=== PATIENT | female | born 1985 | race Caucasian/White ===

== ENCOUNTER 2018-11-12 18:03 | Inpatient (IN) | payer MEDICAID, OTHER ==
[~2018-11-12] VITALS: Ht 162.6 cm; Wt 157.9 kg
[~2018-11-12 18:03] MED LIST: ACET325T33 PO; CEPH-443 PO; LACT1CAP28 PO; NO MEDICATIONS; PROC10TA10 PO
[2018-11-12] MEDS ORDERED: CEFEPIME 2GM/50 ML (PMX) 50 ML IVPB STA (18:10)
[2018-11-12] MEDS ORDERED: ACETAMINOPHEN 325 MG TAB PO STA (18:14)
[2018-11-12] MEDS ORDERED: SODIUM CHLORIDE 0.9% 1L BAG IV* STA (18:14)
[2018-11-12] MEDS ORDERED: VANCOMYCIN 1 GM (PMX) 250 ML IVPB ONE (18:30)
[2018-11-12] MEDS ORDERED: KETOROLAC 30 MG INJ IV STA (19:13)
--- NOTE | 2018-11-12 19:27 | ERD ---
ER Documentation Chief Complaint Chief Complaint Pt reports bit by a bug, feeling nauseated HPI 33-year-old female presenting with left lower extremity pain and redness with associated fever. She complains of 8 out of 10 burning pain in her left lower extremity, with no alleviating factors. Exacerbated by touch. Her symptoms sta rted yesterday and got worse today. Denies any chest pain, shortness breath, cough, other recent illness, abdominal pain. She complains of a mild frontal headache with some nausea. No vision disturbance focal weakness or numbness. ROS All systems reviewed and are negative except as per history of present illness. Medications Home Meds Active Scripts Cephalexin* (Keflex*) 500 Mg Capsule, 500 MG PO QID for 7 Days, CAP Prov:NAYLA PRIETO MD 11/12/18 Reported Medications [No Medications] No Conflict Check 10/29/11 Allergies Allergies: Coded Allergies: No Known Allergies (Verified Allergy, Unknown, 11/12/18) PMhx/Soc History of Surgery: Yes (Cholecystectomy 2008) Anesthesia Reaction: No Hx Neurological Disorder: No Hx Respiratory Disorders: No Hx Cardiac Disorders: No Hx Psychiatric Problems: No Hx Miscellaneous Medical Probl: No Hx Alcohol Use: Yes (Occasionally) Hx Substance Use: No Hx Tobacco Use: No Smoking Status: Never smoker FmHx Family History: No diabetes Physical Exam Vitals Vital Signs Date Temp Pulse Resp B/P (MAP) Pulse Ox O2 O2 Flow FiO2 Time Delivery Rate 11/12/18 100.0 123 20 132/73 100 Room Air 18:59 (92) 11/12/18 104.0 18:27 11/12/18 105.1 135 24 161/70 100 18:09 (100) Physical Exam Const: No acute distress, nontoxic. Obese Head: Atraumatic Eyes: Normal Conjunctiva ENT: Normal External Ears, Nose and Mouth. Neck: Full range of motion. No meningismus. Resp: Clear to auscultation bilaterally Cardio: Tachycardic with regular rhythm, no murmurs. 2+ distal pulses in all 4 extremities Abd: Soft, non tender, non distended. Normal bowel sounds Skin: Left lower extremity with erythema, warmth, and mild tenderness to palpation. Extends from above the ankle to the mid hester, circumferential. No crepitus to palpation. No brawny discoloration. Back: No midline or flank tenderness Ext: No cyanosis, or pitting edema Neur: Awake and alert Psych: Normal Mood and Affect Result Diagram: 11/12/18181511/12/181815 Results 24 hrs Laboratory Tests Test 11/12/18 18:15 11/12/18 18:16 POC Venous Lactate 1.3 mmol/L White Blood Count 12.5 10^3/ul Red Blood Count 4.98 10^6/ul Hemoglobin 11.2 g/dl Hematocrit 37.7 % Mean Corpuscular Volume 75.7 fl Mean Corpuscular Hemoglobin 22.5 pg Mean Corpuscular Hemoglobin Concent 29.7 g/dl Red Cell Distribution Width 17.2 % Platelet Count 237 10^3/UL Mean Platelet Volume 9.6 fl Immature Granulocytes % 0.900 % Neutrophils % 81.8 % Lymphocytes % 10.4 % Monocytes % 6.6 % Eosinophils % 0.1 % Basophils % 0.2 % Nucleated Red Blood Cells % 0.0 /100WBC Immature Granulocytes # 0.110 10^3/ul Neutrophils # 10.2 10^3/ul Lymphocytes # 1.3 10^3/ul Monocytes # 0.8 10^3/ul Eosinophils # 0.0 10^3/ul Basophils # 0.0 10^3/ul Nucleated Red Blood Cells # 0.0 10^3/ul Prothrombin Time 15.8 Sec Prothrombin Time Ratio 1.2 INR International Normalized Ratio 1.25 Activated Partial Thromboplast Time 33.0 Sec Sodium Level 138 mmol/L Potassium Level 4.2 mmol/L Chloride Level 104 mmol/L Carbon Dioxide Level 31 mmol/L Anion Gap 3 Blood Urea Nitrogen 12 mg/dl Creatinine 0.54 mg/dl Est Glomerular Filtrat Rate mL/min > 60 mL/min Glucose Level 119 mg/dl Calcium Level 8.7 mg/dl Total Bilirubin 0.6 mg/dl Direct Bilirubin 0.00 mg/dl Indirect Bilirubin 0.6 mg/dl Aspartate Amino Transf (AST/SGOT) 34 IU/L Alanine Aminotransferase (ALT/SGPT) 34 IU/L Alkaline Phosphatase 81 IU/L Troponin I < 0.012 ng/ml Total Protein 8.6 g/dl Albumin 3.6 g/dl Globulin 5.00 g/dl Albumin/Globulin Ratio 0.72 Current Medications Medications Dose Sig/Car Start Time Status Last (Trade) Ordered Route PRN Stop Time Admin Dose Reason Admin Cefepime HCl 50 ml @ ONCE STAT 11/12/18 DC 11/12/18 100 mls/hr IVPB 18:10 11/12/18 18:27 18:39 Vancomycin 250 ml @ ONCE ONCE 11/12/18 11/12/18 HCl 125 mls/hr IVPB 18:30 11/12/18 19:07 20:29 1,000 mg ONCE STAT 11/12/18 DC 11/12/18 Acetaminophen PO 18:14 11/12/18 18:27 (Tylenol 18:17 Tab) Sodium 1,640 ml BOLUS OVER 2 11/12/18 DC 11/12/18 Chloride HOURS STAT 18:14 11/12/18 18:20 (NS) IV* 18:17 Ketorolac 30 mg ONCE STAT 11/12/18 DC Tromethamine IV 19:13 11/12/18 (Toradol) 19:14 Procedures/MDM EMERGENT LABS AND DIAGNOSTIC STUDIES: Lab Results above were reviewed and interpreted by me. CBC: Leukocytosis, consistent with infection. Mild anemia CMP: No evidence of clinically significant electrolyte abnormality, acidosis, renal failure, hypoglycemia, liver disease, or biliary obstruction Troponin within normal limits, not indicative of cardiac ischemia Lactate within normal limits without evidence of sepsis or tissue hypoperfusion UA: no evidence of infection 12-lead EKG was interpreted by Karina Prieto MD: Sinus tachycardia at 125 bpm Normal axis Normal intervals No acute ST or T wave changes suggestive of acute ischemia or STEMI. Radiology Results as interpreted by Radiology below were reviewed by SLuz Prieto MD: Chest x-ray with mild pulmonary vascular congestion, no consolidations Initial Nursing notes reviewed. Previous Medical Records requested via the Electronic Health Record. EMERGENCY DEPARTMENT COURSE / MEDICAL DECISION MAKING: Patient is presenting with evidence of left lower extremity cellulitis with associated fever. Sepsis work-up was initiated. I do not suspect necrotizing fasciitis. No evidence of abscess. Treated with vancomycin and cefepime. No evidence of severe sepsis or septic shock on work-up. Doubt DVT. Patient treated with Tylenol and Toradol for her fever and pain. Departure Diagnosis: Primary Impression: Cellulitis of left lower extremity Condition: Stable Patient Instructions: Cellulitis Additional Instructions: Call your primary care doctor TOMORROW for an appointment during the next 1-2 days.See the doctor sooner or return here if your condition worsens before your appointment time. NAYLA PRIETO MD Nov 12, 2018 19:27
[2018-11-12] MEDS ORDERED: ACETAMINOPHEN 325 MG TAB PO PRN (20:30)
[2018-11-12] MEDS ORDERED: ONDANSETRON 4 MG INJ IV PRN (20:30)
--- NOTE | 2018-11-12 21:36 | HP ---
Date/Time of Note Date/Time of Note DATE: 11/12/18 TIME: 21:36 Assessment/Plan VTE Prophylaxis Pharmacological prophylaxis: heparin Lines/Catheters IV Catheter Type (from Nrsg): Saline Lock Assessment/Plan Hospital Course This is a 32-year-old female being admitted to the [facility] floor for: #1 sepsis: Secondary to right lower extremity cellulitis. Patient did receive vancomycin and cefepime in the ED. We will continue vancomycin and Zosyn. I have asked the nurses if they can draw lines of demarcation around the cellulitis. Cultures are pending. Lactic acid within normal values. PRN Tylenol for fever. #2 left lower extremity cellulitis: Broad-spectrum antibiotics of vancomycin and Zosyn. #3 morbidly obese: We will check hemoglobin A 1C, panel, TSH, encourage diet lifestyle modification #4 DVT GI prophylaxis: Heparin subcu, no GI prophylaxis indicated Further treatment strategy will be implemented as per the nurse. Result Diagram: 11/12/18 1816 11/12/18 1816 Results 24hrs Laboratory Tests Test 11/12/18 18:15 11/12/18 18:16 11/12/18 20:45 POC Venous Lactate 1.3 White Blood Count 12.5 H Red Blood Count 4.98 Hemoglobin 11.2 L Hematocrit 37.7 Mean Corpuscular Volume 75.7 L Mean Corpuscular Hemoglobin 22.5 L Mean Corpuscular Hemoglobin Concent 29.7 L Red Cell Distribution Width 17.2 H Platelet Count 237 Mean Platelet Volume 9.6 Immature Granulocytes % 0.900 H Neutrophils % 81.8 H Lymphocytes % 10.4 L Monocytes % 6.6 Eosinophils % 0.1 Basophils % 0.2 Nucleated Red Blood Cells % 0.0 Immature Granulocytes # 0.110 H Neutrophils # 10.2 H Lymphocytes # 1.3 Monocytes # 0.8 Eosinophils # 0.0 Basophils # 0.0 Nucleated Red Blood Cells # 0.0 Prothrombin Time 15.8 H Prothrombin Time Ratio 1.2 INR International Normalized Ratio 1.25 Activated Partial Thromboplast Time 33.0 Sodium Level 138 Potassium Level 4.2 Chloride Level 104 Carbon Dioxide Level 31 Anion Gap 3 L Blood Urea Nitrogen 12 Creatinine 0.54 Est Glomerular Filtrat Rate mL/min > 60 Glucose Level 119 Calcium Level 8.7 Total Bilirubin 0.6 Direct Bilirubin 0.00 Indirect Bilirubin 0.6 Aspartate Amino Transf (AST/SGOT) 34 Alanine Aminotransferase (ALT/SGPT) 34 Alkaline Phosphatase 81 Troponin I < 0.012 Total Protein 8.6 H Albumin 3.6 Globulin 5.00 H Albumin/Globulin Ratio 0.72 Lactic Acid Level 0.9 HPI/ROS Admit Date/Time Admit Date/Time Hx of Present Illness Chief complaint: Left lower extremity redness, pain This is a 33-year-old female presenting with left lower extremity pain and redness with associated fever. She complains of 8 out of 10 burning pain in her left lower extremity, with no alleviating factors. Exacerbated by touch. Her symptoms started Saturday and got worse today. Denies any chest pain, shortness breath, cough, other recent illness, abdominal pain. She complains of a mild frontal headache with some nausea. No vision disturbance focal weakness or numbness. She thinks she got bit by mosquito but she is unsure. Allergies: NKDA Medications: None ROS Const: As per HPI Eyes : No pain discharge or redness or change in visual acuity ENT: No pain, sore throat, congestion, congestion, dysphagia or discharge Respiratory: No shortness of breath, cough, sputum, wheezing, or pleuritic pain Cardiovascular: No chest pain, palpitation, PND, or edema GI : no change in appetite, abdominal pain, nausea, vomiting, diarrhea, constipation, or change in the color his stool Genitourinary: No dysuria, hematuria, flank pain , discharge or CVA tenderness Musculoskeletal: No joint pain, back pain, neck pain, restricted range of motion in neck or joints Skin: As per HPI Neuro: No headache, dizziness, syncope, seizure, focal weakness Endocrine: No polyuria, polydipsia, temperature intolerance Psych: No hallucination, depression, anxiety or suicidal ideation PMH/Family/Social Past Medical History Medical History: no pertinent history Medications Current Medications Ondansetron HCl (Zofran Inj) 4 mg BRIDGE ORDER PRN IV NAUSEA/VOMITING; Start 11/12/18 at 20:30; Stop 11/13/18 at 20:29 Acetaminophen (Tylenol Tab) 650 mg ER BRIDGE PRN PO .MILD PAIN 1-3 OR TEMP; Start 11/12/18 at 20:30; Stop 11/13/18 at 20:29 Coded Allergies: No Known Allergies (Verified Allergy, Unknown, 11/12/18) Past Surgical History Past Surgical Hx: cholecystectomy Family History Significant Family History: no pertinent family hx Social History Alcohol Use: none Smoking Status: Never smoker Drug Use: none Exam/Review of Systems Vital Signs Vitals Vital Signs Date Temp Pulse Resp B/P (MAP) Pulse Ox O2 O2 Flow FiO2 Time Delivery Rate 11/12/18 100.6 103 20 105/51 97 Nasal 3.0 21:19 (69) Cannula Exam Exam General: Patient is currently lying in bed in no acute distress HEENT: Atraumatic, normocephalic. The pupils are equal, round and reactive. Extraocular motor are intact Neck: Supple with full range of motion. No rigidity or meningismus Chest: Nontender Lungs: Clear to auscultation bilaterally no crackles rales or wheezing Heart: Normal S1-S2, Regular rhythm and rate. No murmur, S3, or S4 Abdomen: Morbidly obese, soft , nontender, nondistended , bowel sounds are present. No guarding no rebound tenderness , No masses or organomegaly. No costovertebral temporal angle mass Extremities: Normal to inspection, no edema no cyanosis Skin: Left lower extremity redness and erythema warmth, no area of fluctuance noted Neurologic: Normal mental status, speech normal, cranial nerves II through XII a re intact, motor and sensory are intact, Additional Comments PROCEDURE: Chest. CLINICAL INDICATION: Chest pain. TECHNIQUE: Single frontal view of the chest was obtained. COMPARISON: None. FINDINGS: The cardiac silhouette is enlarged. The aortic arch is unremarkable. There is mild pulmonary venous congestion. There is no focal consolidation or pleural eff usion. There is no pneumothorax. IMPRESSION: Mild cardiomegaly and pulmonary venous congestion. .Johnathan Alexander MD, MD Date Time Electronically viewed and signed by .Johnathan Alexander MD, MD on 11/12/2018 18:29 .T/ CC: NAYLA CARTER MD [id number] PAMELA GARNETT Nov 12, 2018 21:36
[2018-11-12] MEDS ORDERED: morphine 2 MG INJ IV PRN (22:00)
[2018-11-12] MEDS ORDERED: NACL 0.9% 3 ML SYG IV SCH (22:00)
[2018-11-12] MEDS ORDERED: DOCUSATE SODIUM 100 MG CAP PO PRN (22:00)
[2018-11-12] MEDS ORDERED: VANCOMYCIN IV PER PHARMACY XX SCH (22:00)
[2018-11-12] MEDS ORDERED: BISACODYL (EC) 5 MG TAB PO PRN (22:00)
[2018-11-12 22:10] VITALS: BP 103/45; PULSE 107; RESP 18
[2018-11-12 22:18] VITALS: Ht 162.6 cm; Wt 157.9 kg
[2018-11-12] MEDS: HEPARIN 5,000 UNIT/1 ML VIAL SC SCH (22:33)
[2018-11-12] MEDS: HYDROCODONE/APAP (5/325) TAB PO PRN (22:34)
[2018-11-13 02:02] VITALS: BP 99/58; PULSE 98; RESP 20
[2018-11-13] MEDS: HEPARIN 5,000 UNIT/1 ML VIAL SC SCH ×3 (06:08→22:25)
[2018-11-13] MEDS: VANCOMYCIN 1.5 GM/NS 250 ML 250 ML IVPB SCH ×2 (06:34→20:49)
[2018-11-13 07:32] VITALS: BP 96/45; PULSE 88; RESP 20
--- NOTE | 2018-11-13 12:20 | PN ---
Date/Time of Note Date/Time of Note DATE: 11/13/18 TIME: 12:17 Assessment/Plan VTE Prophylaxis Risk score (from Ns)>0 risk: 2 SCD applied (from Ns): No SCD contraindicated: low risk/ambulating Pharmacological prophylaxis: LMWH Lines/Catheters IV Catheter Type (from Nrsg): Peripheral IV Assessment/Plan Hospital Course Assessment and plan 1. Ssti/ lt lwr ext cellulitis, stable continue antibiotics, likely strep 2. Bug bite, history of tattoos, taking tetanus booster 3. Morbid obesity, A1c okay, Erin's syndrome? 4. CLEMENTINA risk S: This onset of left lower extremity cellulitis on Saturday. Had fever nausea signs of sepsis yesterday. Possible mosquito bite. Has been visiting mom here in the hospital. No recent travel. No chest pain dyspnea or leg injury. Tetanus shot? O: vss PE No pallor Regular Clear Benign overweight Lt lower ext: min warmth, but erythema noted above ankle below calf. no joint tenderness Result Diagram: 11/13/18 0546 11/13/18 0546 Results 24hrs Laboratory Tests Test 11/12/18 18:15 11/12/18 18:16 11/12/18 20:45 11/12/18 22:25 POC Venous Lactate 1.3 White Blood Count 12.5 H Red Blood Count 4.98 Hemoglobin 11.2 L Hematocrit 37.7 Mean Corpuscular Volume 75.7 L Mean Corpuscular 22.5 L Hemoglobin Mean Corpuscular 29.7 L Hemoglobin Concent Red Cell Distribution 17.2 H Width Platelet Count 237 Mean Platelet Volume 9.6 Immature Granulocytes % 0.900 H Neutrophils % 81.8 H Lymphocytes % 10.4 L Monocytes % 6.6 Eosinophils % 0.1 Basophils % 0.2 Nucleated Red Blood 0.0 Cells % Immature Granulocytes # 0.110 H Neutrophils # 10.2 H Lymphocytes # 1.3 Monocytes # 0.8 Eosinophils # 0.0 Basophils # 0.0 Nucleated Red Blood 0.0 Cells # Prothrombin Time 15.8 H Prothrombin Time Ratio 1.2 INR International 1.25 Normalized Ratio Activated 33.0 Partial Thromboplast Time Sodium Level 138 Potassium Level 4.2 Chloride Level 104 Carbon Dioxide Level 31 Anion Gap 3 L Blood Urea Nitrogen 12 Creatinine 0.54 Est Glomerular Filtrat > 60 Rate mL/min Glucose Level 119 Calcium Level 8.7 Total Bilirubin 0.6 Direct Bilirubin 0.00 Indirect Bilirubin 0.6 Aspartate Amino 34 Transf (AST/SGOT) Alanine 34 Aminotransferase (ALT/SG PT) Alkaline Phosphatase 81 Troponin I < 0.012 Total Protein 8.6 H Albumin 3.6 Globulin 5.00 H Albumin/Globulin Ratio 0.72 Lactic Acid Level 0.9 0.8 B-Type Natriuretic 170 H Peptide Test 11/13/18 05:46 White Blood Count 9.8 # Red Blood Count 4.64 Hemoglobin 10.3 L Hematocrit 35.6 L Mean Corpuscular Volume 76.7 L Mean Corpuscular 22.2 L Hemoglobin Mean Corpuscular 28.9 L Hemoglobin Concent Red Cell Distribution 17.2 H Width Platelet Count 210 Mean Platelet Volume 11.2 H Immature Granulocytes % 0.800 H Neutrophils % Segmented Neutrophils 57 % (Manual) Band Neutrophils % 12 H (Manual) Lymphocytes % Lymphocytes % (Manual) 15 Reactive Lymphocytes 2 H % (Manual) Monocytes % Monocytes % (Manual) 10 Eosinophils % Basophils % Basophils % (Manual) 1 Metamyelocytes % 1 H (manual) Myelocytes % (Manual) 2 H Nucleated Red Blood 0.0 Cells % Immature Granulocytes # 0.080 H Neutrophils # Neutrophils # (Manual) 5.7 Band Neutrophils # 1.1 H Lymphocytes (Manual) 1.4 Lymphocytes # Reactive Lymphocytes # 0.1 H Monocytes # Monocytes # (Manual) 0.9 Eosinophils # Basophils # Basophils # (Manual) 0.0 Metamyelocytes # 0.0 Myelocytes # 0.1 H Nucleated Red Blood Cells # Platelet Estimate NORMAL Giant Platelets 1 H Polychromasia 3+ Poikilocytosis 2+ Anisocytosis 2+ Microcytosis 2+ Sodium Level 139 Potassium Level 3.8 Chloride Level 107 Carbon Dioxide Level 32 H Anion Gap 0 L Blood Urea Nitrogen 15 Creatinine 0.50 Est Glomerular Filtrat > 60 Rate mL/min Glucose Level 103 Hemoglobin A1c 5.6 Calcium Level 8.3 L Magnesium Level 2.0 Total Bilirubin 0.5 Direct Bilirubin 0.00 Indirect Bilirubin 0.5 Aspartate Amino 32 Transf (AST/SGOT) Alanine 34 Aminotransferase (ALT/SG PT) Alkaline Phosphatase 72 Total Protein 7.2 # Albumin 3.0 L Globulin 4.20 H Albumin/Globulin Ratio 0.71 Triglycerides Level 82 Cholesterol Level 105 LDL Cholesterol, 62 Calculated HDL Cholesterol 27 L Cholesterol/HDL Ratio 3.8 Thyroid Stimulating 1.040 Hormone (TSH) Exam/Review of Systems Exam Vitals Vital Signs Date Temp Pulse Resp B/P (MAP) Pulse Ox O2 O2 Flow FiO2 Time Delivery Rate 11/13/18 100.1 88 20 96/45 (62) 94 Room Air 07:32 11/12/18 3.0 21:19 Intake and Output 11/12/18 11/12/18 11/13/18 1515:00 23:00 07:00 IntakeIntake Total 250 ml BalanceBalance 250 ml Results Results 24hrs Laboratory Tests Test 11/12/18 18:15 11/12/18 18:16 11/12/18 20:45 11/12/18 22:25 POC Venous Lactate 1.3 White Blood Count 12.5 H Red Blood Count 4.98 Hemoglobin 11.2 L Hematocrit 37.7 Mean Corpuscular Volume 75.7 L Mean Corpuscular 22.5 L Hemoglobin Mean Corpuscular 29.7 L Hemoglobin Concent Red Cell Distribution 17.2 H Width Platelet Count 237 Mean Platelet Volume 9.6 Immature Granulocytes % 0.900 H Neutrophils % 81.8 H Lymphocytes % 10.4 L Monocytes % 6.6 Eosinophils % 0.1 Basophils % 0.2 Nucleated Red Blood 0.0 Cells % Immature Granulocytes # 0.110 H Neutrophils # 10.2 H Lymphocytes # 1.3 Monocytes # 0.8 Eosinophils # 0.0 Basophils # 0.0 Nucleated Red Blood 0.0 Cells # Prothrombin Time 15.8 H Prothrombin Time Ratio 1.2 INR International 1.25 Normalized Ratio Activated 33.0 Partial Thromboplast Time Sodium Level 138 Potassium Level 4.2 Chloride Level 104 Carbon Dioxide Level 31 Anion Gap 3 L Blood Urea Nitrogen 12 Creatinine 0.54 Est Glomerular Filtrat > 60 Rate mL/min Glucose Level 119 Calcium Level 8.7 Total Bilirubin 0.6 Direct Bilirubin 0.00 Indirect Bilirubin 0.6 Aspartate Amino 34 Transf (AST/SGOT) Alanine 34 Aminotransferase (ALT/SG PT) Alkaline Phosphatase 81 Troponin I < 0.012 Total Protein 8.6 H Albumin 3.6 Globulin 5.00 H Albumin/Globulin Ratio 0.72 Lactic Acid Level 0.9 0.8 B-Type Natriuretic 170 H Peptide Test 11/13/18 05:46 White Blood Count 9.8 # Red Blood Count 4.64 Hemoglobin 10.3 L Hematocrit 35.6 L Mean Corpuscular Volume 76.7 L Mean Corpuscular 22.2 L Hemoglobin Mean Corpuscular 28.9 L Hemoglobin Concent Red Cell Distribution 17.2 H Width Platelet Count 210 Mean Platelet Volume 11.2 H Immature Granulocytes % 0.800 H Neutrophils % Segmented Neutrophils 57 % (Manual) Band Neutrophils % 12 H (Manual) Lymphocytes % Lymphocytes % (Manual) 15 Reactive Lymphocytes 2 H % (Manual) Monocytes % Monocytes % (Manual) 10 Eosinophils % Basophils % Basophils % (Manual) 1 Metamyelocytes % 1 H (manual) Myelocytes % (Manual) 2 H Nucleated Red Blood 0.0 Cells % Immature Granulocytes # 0.080 H Neutrophils # Neutrophils # (Manual) 5.7 Band Neutrophils # 1.1 H Lymphocytes (Manual) 1.4 Lymphocytes # Reactive Lymphocytes # 0.1 H Monocytes # Monocytes # (Manual) 0.9 Eosinophils # Basophils # Basophils # (Manual) 0.0 Metamyelocytes # 0.0 Myelocytes # 0.1 H Nucleated Red Blood Cells # Platelet Estimate NORMAL Giant Platelets 1 H Polychromasia 3+ Poikilocytosis 2+ Anisocytosis 2+ Microcytosis 2+ Sodium Level 139 Potassium Level 3.8 Chloride Level 107 Carbon Dioxide Level 32 H Anion Gap 0 L Blood Urea Nitrogen 15 Creatinine 0.50 Est Glomerular Filtrat > 60 Rate mL/min Glucose Level 103 Hemoglobin A1c 5.6 Calcium Level 8.3 L Magnesium Level 2.0 Total Bilirubin 0.5 Direct Bilirubin 0.00 Indirect Bilirubin 0.5 Aspartate Amino 32 Transf (AST/SGOT) Alanine 34 Aminotransferase (ALT/SG PT) Alkaline Phosphatase 72 Total Protein 7.2 # Albumin 3.0 L Globulin 4.20 H Albumin/Globulin Ratio 0.71 Triglycerides Level 82 Cholesterol Level 105 LDL Cholesterol, 62 Calculated HDL Cholesterol 27 L Cholesterol/HDL Ratio 3.8 Thyroid Stimulating 1.040 Hormone (TSH) Medications Medication Current Medications IV Flush (NS 3 ml) 3 ml PER PROTOCOL IV ; Start 11/12/18 at 22:00 Ondansetron HCl (Zofran Inj) 4 mg Q6H PRN IV NAUSEA/VOMITING; Start 11/12/18 at 22:00 Acetaminophen (Tylenol Tab) 650 mg Q6H PRN PO .PAIN 1-3 OR TEMP; Start 11/12/18 at 22:00 Acetaminophen/ Hydrocodone Bitart ([place] (5/325)) 1 tab Q6H PRN PO .MOD PAIN 4- 6 Last administered on 11/12/18at 22:34; Admin Dose 1 TAB; Start 11/12/18 at 22:00 Morphine Sulfate (morphine) 2 mg Q4H PRN IV .SEVERE PAIN 7-10; Start 11/12/18 at 22:00 Docusate Sodium (Colace) 100 mg Q12H PRN PO .CONSTIPATION; Start 11/12/18 at 22:00 Bisacodyl (Dulcolax) 5 mg DAILY PRN PO .CONSTIPATION; Start 11/12/18 at 22:00 Heparin Sodium (Porcine) (Heparin (5000 Units/1ml)) 5,000 unit Q8 SC Last administered on 11/13/18at 06:08; Admin Dose 5,000 UNIT; Start 11/12/18 at 22:00 Vancomycin HCl (Vanco Iv Per Pharmacy) VANCOMYCIN PER PHARMACY PER PROTOCOL XX ; Start 11/12/18 at 22:00 Vancomycin/Sodium Chloride 250 ml @ 83.333 mls/ hr Q12H IVPB Last administered on 11/13/18at 06:34; Admin Dose 83.333 MLS/HR; Start 11/13/18 at 07:30 Piperacillin Sod/ Tazobactam Sod 100 ml @ 25 mls/hr Q6 IVPB ; Start 11/13/18 at 08:30 MELECIO DOUGHERTY MD Nov 13, 2018 12:20
[2018-11-13] MEDS: PIPER-TAZO 3.375 GM IV (PMX) 100 ML IVPB SCH ×3 (13:00→17:44)
[2018-11-13 14:39] VITALS: BP 94/51; PULSE 88; RESP 20
[2018-11-13 19:45] VITALS: BP 105/55; PULSE 96; RESP 18
[2018-11-13] MEDS: HYDROCODONE/APAP (5/325) TAB PO PRN (21:45)
[2018-11-13] MEDS: ONDANSETRON 4 MG INJ IV PRN (21:48)
[2018-11-14] MEDS: PIPER-TAZO 3.375 GM IV (PMX) 100 ML IVPB SCH ×4 (01:07→17:54)
[2018-11-14 02:04] VITALS: BP 111/53; PULSE 104; RESP 18
[2018-11-14] MEDS: HYDROCODONE/APAP (5/325) TAB PO PRN ×2 (04:28→21:01)
[2018-11-14] MEDS: ONDANSETRON 4 MG INJ IV PRN (04:28)
[2018-11-14] MEDS: HEPARIN 5,000 UNIT/1 ML VIAL SC SCH ×3 (06:01→21:03)
[2018-11-14 08:00] VITALS: BP 115/50; PULSE 86; RESP 24
[2018-11-14] MEDS: LACTOBACILLUS RHAMNOSUS CAP PO SCH ×2 (08:29→21:01)
[2018-11-14] MEDS: VANCOMYCIN 1.5 GM/NS 250 ML 250 ML IVPB SCH ×2 (09:54→21:01)
--- NOTE | 2018-11-14 11:24 | PN ---
Date/Time of Note Date/Time of Note DATE: 11/14/18 TIME: 11:23 Assessment/Plan VTE Prophylaxis Risk score (from Nsg)>0 risk: 3 SCD applied (from Ns): No SCD contraindicated: low risk/ambulating Pharmacological prophylaxis: LMWH Lines/Catheters IV Catheter Type (from Nrsg): Peripheral IV Assessment/Plan Hospital Course Assessment and plan 1. Ssti/ lt lwr ext cellulitis, stable continue antibiotics, likely strep 2. Bug bite, history of tattoos, taking tetanus booster 3. Morbid obesity, A1c okay, Doyle's syndrome? 24-hour urine being collected 4. CLEMENTINA risk S: 11/13 this onset of left lower extremity cellulitis on Saturday. Had fever nausea signs of sepsis yesterday. Possible mosquito bite. Has been visiting mom here in the hospital. No recent travel. No chest pain dyspnea or leg injury. Tetanus shot? /9 feels little better O: vss PE No pallor Regular Clear Benign overweight Lt lower ext: min warmth, but erythema noted above ankle below calf. no joint tenderness Result Diagram: 11/14/1851811/14/18 0519 Results 24hrs Laboratory Tests Test 11/14/18 05:19 White Blood Count 9.2 Red Blood Count 4.52 Hemoglobin 10.0 L Hematocrit 34.8 L Mean Corpuscular Volume 77.0 L Mean Corpuscular Hemoglobin 22.1 L Mean Corpuscular Hemoglobin Concent 28.7 L Red Cell Distribution Width 17.2 H Platelet Count 224 Mean Platelet Volume 9.8 Immature Granulocytes % 0.500 H Neutrophils % 70.6 Lymphocytes % 19.2 Monocytes % 9.2 Eosinophils % 0.2 Basophils % 0.3 Nucleated Red Blood Cells % 0.0 Immature Granulocytes # 0.050 H Neutrophils # 6.5 Lymphocytes # 1.8 Monocytes # 0.9 Eosinophils # 0.0 Basophils # 0.0 Nucleated Red Blood Cells # 0.0 Sodium Level 139 Potassium Level 4.0 Chloride Level 104 Carbon Dioxide Level 31 Anion Gap 4 L Blood Urea Nitrogen 13 Creatinine 0.52 Est Glomerular Filtrat Rate mL/min > 60 Glucose Level 114 Calcium Level 8.3 L Total Bilirubin 0.4 Direct Bilirubin 0.00 Indirect Bilirubin 0.4 Aspartate Amino Transf (AST/SGOT) 29 Alanine Aminotransferase (ALT/SGPT) 28 Alkaline Phosphatase 78 Total Protein 7.7 Albumin 3.2 L Globulin 4.50 H Albumin/Globulin Ratio 0.71 Random Cortisol 20.7 Exam/Review of Systems Exam Vitals Vital Signs Date Temp Pulse Resp B/P (MAP) Pulse Ox O2 O2 Flow FiO2 Time Delivery Rate 11/14/18 97.7 86 24 115/50 92 08:00 (71) 11/14/18 Room Air 02:04 11/12/18 3.0 21:19 Intake and Output 11/13/18 11/13/18 11/14/18 1515:00 23:00 07:00 IntakeIntake Total 1050 ml 600 ml 450 ml OutputOutput Total 250 ml 300 ml BalanceBalance 1050 ml 350 ml 150 ml Results Results 24hrs Laboratory Tests Test 11/14/18 05:19 White Blood Count 9.2 Red Blood Count 4.52 Hemoglobin 10.0 L Hematocrit 34.8 L Mean Corpuscular Volume 77.0 L Mean Corpuscular Hemoglobin 22.1 L Mean Corpuscular Hemoglobin Concent 28.7 L Red Cell Distribution Width 17.2 H Platelet Count 224 Mean Platelet Volume 9.8 Immature Granulocytes % 0.500 H Neutrophils % 70.6 Lymphocytes % 19.2 Monocytes % 9.2 Eosinophils % 0.2 Basophils % 0.3 Nucleated Red Blood Cells % 0.0 Immature Granulocytes # 0.050 H Neutrophils # 6.5 Lymphocytes # 1.8 Monocytes # 0.9 Eosinophils # 0.0 Basophils # 0.0 Nucleated Red Blood Cells # 0.0 Sodium Level 139 Potassium Level 4.0 Chloride Level 104 Carbon Dioxide Level 31 Anion Gap 4 L Blood Urea Nitrogen 13 Creatinine 0.52 Est Glomerular Filtrat Rate mL/min > 60 Glucose Level 114 Calcium Level 8.3 L Total Bilirubin 0.4 Direct Bilirubin 0.00 Indirect Bilirubin 0.4 Aspartate Amino Transf (AST/SGOT) 29 Alanine Aminotransferase (ALT/SGPT) 28 Alkaline Phosphatase 78 Total Protein 7.7 Albumin 3.2 L Globulin 4.50 H Albumin/Globulin Ratio 0.71 Random Cortisol 20.7 Medications Medication Current Medications IV Flush (NS 3 ml) 3 ml PER PROTOCOL IV ; Start 11/12/18 at 22:00 Ondansetron HCl (Zofran Inj) 4 mg Q6H PRN IV NAUSEA/VOMITING Last administered on 11/14/18at 04:28; Admin Dose 4 MG; Start 11/12/18 at 22:00 Acetaminophen (Tylenol Tab) 650 mg Q6H PRN PO .PAIN 1-3 OR TEMP; Start 11/12/18 at 22:00 Acetaminophen/ Hydrocodone Bitart ([place] (5/325)) 1 tab Q6H PRN PO .MOD PAIN 4- 6 Last administered on 11/14/18at 04:28; Admin Dose 1 TAB; Start 11/12/18 at 22:00 Morphine Sulfate (morphine) 2 mg Q4H PRN IV .SEVERE PAIN 7-10; Start 11/12/18 at 22:00 Docusate Sodium (Colace) 100 mg Q12H PRN PO .CONSTIPATION; Start 11/12/18 at 22:00 Bisacodyl (Dulcolax) 5 mg DAILY PRN PO .CONSTIPATION; Start 11/12/18 at 22:00 Heparin Sodium (Porcine) (Heparin (5000 Units/1ml)) 5,000 unit Q8 SC Last administered on 11/14/18at 06:01; Admin Dose 5,000 UNIT; Start 11/12/18 at 22:00 Vancomycin HCl (Vanco Iv Per Pharmacy) VANCOMYCIN PER PHARMACY PER PROTOCOL XX ; Start 11/12/18 at 22:00 Piperacillin Sod/ Tazobactam Sod 100 ml @ 200 mls/hr Q6 IVPB Last administered on 11/14/18at 06:00; Admin Dose 25 MLS/HR; Start 11/13/18 at 08:30 Lactobacillus Acidophilus/ Rhamnosus (Culturelle) 1 cap BID PO Last administered on 11/14/18at 08:29; Admin Dose 1 CAP; Start 11/14/18 at 09:00 Vancomycin/Sodium Chloride 250 ml @ 83.333 mls/ hr Q12H IVPB ; Start 11/14/18 at 22:00 Miscellaneous Information (*Rx Drug Level Order Reminder*) VANCO TROUGH AT 0900 0900 ONCE XX ; Start 11/15/18 at 09:00; Stop 11/15/18 at 09:01 MELECIO DOUGHERTY MD Nov 14, 2018 11:24
[2018-11-14 14:00] VITALS: BP 94/54; PULSE 83; RESP 24
[2018-11-14 20:15] VITALS: BP 126/60; PULSE 85; RESP 18
[2018-11-14] MEDS: ACETAMINOPHEN 325 MG TAB PO PRN (23:33)
[2018-11-15] MEDS: PIPER-TAZO 3.375 GM IV (PMX) 100 ML IVPB SCH ×6 (00:06→23:11)
[2018-11-15 02:12] VITALS: BP 126/64; PULSE 79; RESP 18
[2018-11-15] MEDS: ONDANSETRON 4 MG INJ IV PRN (02:25)
[2018-11-15] MEDS: HYDROCODONE/APAP (5/325) TAB PO PRN (05:33)
[2018-11-15] MEDS: HEPARIN 5,000 UNIT/1 ML VIAL SC SCH ×3 (05:35→21:33)
[2018-11-15 07:25] VITALS: BP 110/56; PULSE 71; RESP 18
[2018-11-15] MEDS: LACTOBACILLUS RHAMNOSUS CAP PO SCH ×2 (08:57→20:20)
[2018-11-15] MEDS: VANCOMYCIN 1.5 GM/NS 250 ML 250 ML IVPB SCH (10:36)
[2018-11-15 14:27] VITALS: BP 107/53; PULSE 67; RESP 18
[2018-11-15] MEDS: ACETAMINOPHEN 325 MG TAB PO PRN (18:34)
[2018-11-15 20:00] VITALS: BP 103/52; PULSE 61; RESP 18
[2018-11-15] MEDS ORDERED: VANCOMYCIN 1.25 GM/NS 250 ML 250 ML IVPB SCH (20:00)
--- NOTE | 2018-11-15 20:22 | PN ---
Date/Time of Note Date/Time of Note DATE: 11/15/18 TIME: 20:21 Assessment/Plan VTE Prophylaxis Risk score (from Ns)>0 risk: 3 SCD applied (from Ns): No SCD contraindicated: low risk/ambulating Pharmacological prophylaxis: LMWH Lines/Catheters IV [facility] Saline Lock Assessment/Plan Hospital Course Assessment and plan 1. Ssti/ lt lwr ext cellulitis, stable continue antibiotics, likely strep 2. Bug bite, history of tattoos, taking tetanus booster 3. Morbid obesity, A1c okay, [place]'s syndrome? 24-hour urine being collected 4. CLEMENTINA risk 5. OHS; home o2? S: 11/13 this onset of left lower extremity cellulitis on Saturday. Had fever nausea signs of sepsis yesterday. Possible mosquito bite. Has been visiting mom here in the hospital. No recent travel. No chest pain dyspnea or leg injury. Tetanus shot? /9 feels little better 11/15: better; homeless? O: vss PE No pallor Regular Clear Benign overweight Lt lower ext: min warmth, but erythema noted above ankle below calf. no joint tenderness Result Diagram: 11/15/1831 11/15/1831 Results 24hrs Laboratory Tests Test 11/14/18 22:56 11/15/18 05:31 11/15/18 09:15 Urine Color IKE Urine Clarity SLIGHTLY CLOUDY A Urine pH 5.0 Urine Specific [facility] 1.036 H Urine Ketones NEGATIVE Urine Nitrite NEGATIVE Urine Bilirubin NEGATIVE Urine Urobilinogen NEGATIVE Urine Leukocyte Esterase 1+ H Urine Microscopic RBC 5 Urine Microscopic WBC 18 H Urine Squamous FEW Epithelial Cells Urine Bacteria FEW A Urine Mucus FEW A Urine Hemoglobin NEGATIVE Urine Glucose NEGATIVE Urine Total Protein 1+ H White Blood Count 9.2 Red Blood Count 4.30 Hemoglobin 9.7 L Hematocrit 33.7 L Mean Corpuscular Volume 78.4 L Mean Corpuscular Hemoglobin 22.6 L Mean Corpuscular 28.8 L Hemoglobin Concent Red Cell Distribution Width 17.1 H Platelet Count 216 Mean Platelet Volume 10.5 H Immature Granulocytes % 0.900 H Neutrophils % 63.6 Lymphocytes % 26.8 Monocytes % 7.9 Eosinophils % 0.4 Basophils % 0.4 Nucleated Red Blood Cells % 0.0 Immature Granulocytes # 0.080 H Neutrophils # 5.8 Lymphocytes # 2.5 Monocytes # 0.7 Eosinophils # 0.0 Basophils # 0.0 Nucleated Red Blood Cells # 0.0 Sodium Level 140 Potassium Level 4.3 Chloride Level 104 Carbon Dioxide Level 33 H Anion Gap 3 L Blood Urea Nitrogen 15 Creatinine 0.56 Est Glomerular Filtrat > 60 Rate mL/min Glucose Level 105 Calcium Level 8.2 L Total Bilirubin 0.3 Direct Bilirubin 0.00 Indirect Bilirubin 0.3 Aspartate Amino 29 Transf (AST/SGOT) Alanine 25 Aminotransferase (ALT/SGPT) Alkaline Phosphatase 88 Total Protein 7.6 Albumin 3.2 L Globulin 4.40 H Albumin/Globulin Ratio 0.72 Vancomycin Level Trough 5.7 L Exam/Review of Systems Exam Vitals Vital Signs Date Temp Pulse Resp B/P (MAP) Pulse Ox O2 O2 Flow FiO2 Time Delivery Rate 11/15/18 Nasal 2.0 19:43 Cannula 11/15/18 83 16:33 11/15/18 15:51 11/15/18 98.2 67 18 14:27 Intake and Output 11/14/18 11/14/18 11/15/18 1515:00 23:00 07:00 IntakeIntake Total 350 ml 100 ml 1450 ml BalanceBalance 350 ml 100 ml 1450 ml Results Results 24hrs Laboratory Tests Test 11/14/18 22:56 11/15/18 05:31 11/15/18 09:15 Urine Color IKE Urine Clarity SLIGHTLY CLOUDY A Urine pH 5.0 Urine Specific [facility] 1.036 H Urine Ketones NEGATIVE Urine Nitrite NEGATIVE Urine Bilirubin NEGATIVE Urine Urobilinogen NEGATIVE Urine Leukocyte Esterase 1+ H Urine Microscopic RBC 5 Urine Microscopic WBC 18 H Urine Squamous FEW Epithelial Cells Urine Bacteria FEW A Urine Mucus FEW A Urine Hemoglobin NEGATIVE Urine Glucose NEGATIVE Urine Total Protein 1+ H White Blood Count 9.2 Red Blood Count 4.30 Hemoglobin 9.7 L Hematocrit 33.7 L Mean Corpuscular Volume 78.4 L Mean Corpuscular Hemoglobin 22.6 L Mean Corpuscular 28.8 L Hemoglobin Concent Red Cell Distribution Width 17.1 H Platelet Count 216 Mean Platelet Volume 10.5 H Immature Granulocytes % 0.900 H Neutrophils % 63.6 Lymphocytes % 26.8 Monocytes % 7.9 Eosinophils % 0.4 Basophils % 0.4 Nucleated Red Blood Cells % 0.0 Immature Granulocytes # 0.080 H Neutrophils # 5.8 Lymphocytes # 2.5 Monocytes # 0.7 Eosinophils # 0.0 Basophils # 0.0 Nucleated Red Blood Cells # 0.0 Sodium Level 140 Potassium Level 4.3 Chloride Level 104 Carbon Dioxide Level 33 H Anion Gap 3 L Blood Urea Nitrogen 15 Creatinine 0.56 Est Glomerular Filtrat > 60 Rate mL/min Glucose Level 105 Calcium Level 8.2 L Total Bilirubin 0.3 Direct Bilirubin 0.00 Indirect Bilirubin 0.3 Aspartate Amino 29 Transf (AST/SGOT) Alanine 25 Aminotransferase (ALT/SGPT) Alkaline Phosphatase 88 Total Protein 7.6 Albumin 3.2 L Globulin 4.40 H Albumin/Globulin Ratio 0.72 Vancomycin Level Trough 5.7 L Medications Medication Current Medications IV Flush (NS 3 ml) 3 ml PER PROTOCOL IV ; Start 11/12/18 at 22:00 Ondansetron HCl (Zofran Inj) 4 mg Q6H PRN IV NAUSEA/VOMITING Last administered on 11/15/18at 02:25; Admin Dose 4 MG; Start 11/12/18 at 22:00 Acetaminophen (Tylenol Tab) 650 mg Q6H PRN PO .PAIN 1-3 OR TEMP Last administered on 11/15/18at 18:34; Admin Dose 650 MG; Start 11/12/18 at 22:00 Acetaminophen/ Hydrocodone Bitart ([place] (5/325)) 1 tab Q6H PRN PO .MOD PAIN 4- 6 Last administered on 11/15/18at 05:33; Admin Dose 1 TAB; Start 11/12/18 at 22:00 Morphine Sulfate (morphine) 2 mg Q4H PRN IV .SEVERE PAIN 7-10; Start 11/12/18 at 22:00 Docusate Sodium (Colace) 100 mg Q12H PRN PO .CONSTIPATION; Start 11/12/18 at 22:00 Bisacodyl (Dulcolax) 5 mg DAILY PRN PO .CONSTIPATION; Start 11/12/18 at 22:00 Heparin Sodium (Porcine) (Heparin (5000 Units/1ml)) 5,000 unit Q8 SC Last administered on 11/15/18at 14:22; Admin Dose 5,000 UNIT; Start 11/12/18 at 22:00 Vancomycin HCl (Vanco Iv Per Pharmacy) VANCOMYCIN PER PHARMACY PER PROTOCOL XX ; Start 11/12/18 at 22:00 Piperacillin Sod/ Tazobactam Sod 100 ml @ 200 mls/hr Q6 IVPB Last administered on 11/15/18at 18:29; Admin Dose 200 MLS/HR; Start 11/13/18 at 08:30 Lactobacillus Acidophilus/ Rhamnosus (Culturelle) 1 cap BID PO Last administered on 11/15/18at 20:20; Admin Dose 1 CAP; Start 11/14/18 at 09:00 Vancomycin/Sodium Chloride 250 ml @ 83.333 mls/ hr Q8H IVPB Last administered on 11/15/18at 20:20; Admin Dose 83.333 MLS/HR; Start 11/15/18 at 20:00 Miscellaneous Information (*Rx Drug Level Order Reminder*) VANCO TROUGH @ 1,900 1900 ONCE XX ; Start 11/16/18 at 19:00; Stop 11/16/18 at 19:01 MELECIO DOUGHERTY MD Nov 15, 2018 20:22
[2018-11-15 23:30] VITALS: PULSE 67
[2018-11-16] VITALS (9 sets, daily range): BP systolic 94–107; BP diastolic 51–58; PULSE 61–77; RESP 16–18
[2018-11-16] MEDS: PIPER-TAZO 3.375 GM IV (PMX) 100 ML IVPB SCH ×3 (05:32→18:04)
[2018-11-16] MEDS: HEPARIN 5,000 UNIT/1 ML VIAL SC SCH ×3 (05:35→21:19)
[2018-11-16] MEDS ORDERED: FUROSEMIDE 20 MG INJ IV ONE (06:00)
[2018-11-16] MEDS: ACETAMINOPHEN 325 MG TAB PO PRN (08:40)
[2018-11-16] MEDS: LACTOBACILLUS RHAMNOSUS CAP PO SCH ×2 (08:41→21:19)
--- NOTE | 2018-11-16 11:12 | PDOCDIS ---
Discharge Instructions CONDITION [id number] Patient Condition: [id number] Stable HOME CARE INSTRUCTIONS: [id number] Diet Instructions: [id number] Regular ACTIVITY: [id number] Activity Restrictions: [id number] No Restrictions Slowly Increase Activity FOLLOW UP/APPOINTMENTS Follow-up Plan Appointment primary 1 week Referral to pulmonary Dr. Garvey in 2 weeks MELECIO DOUGHERTY MD Nov 16, 2018 11:12
--- NOTE | 2018-11-16 11:16 | PN ---
Date/Time of Note Date/Time of Note DATE: 11/16/18 TIME: 11:14 Assessment/Plan VTE Prophylaxis Risk score (from Ns)>0 risk: 3 SCD applied (from Ns): No SCD contraindicated: low risk/ambulating Pharmacological prophylaxis: LMWH Lines/Catheters IV Catheter Type (from Nrs): Saline Lock Assessment/Plan Hospital Course Assessment and plan 1. Ssti/ lt lwr ext cellulitis, stable cont keflex. likely strep 2. Bug bite, history of tattoos, taking tetanus booster 3. Morbid obesity, A1c okay, [place]'s syndrome? 24-hour urine being collected 4. CLEMENTINA risk. Consider outpatient testing 5. OHS; home o2? 2D echo ordered for pulmonary pretension. We will try to see if she qualifies for home O2. 6. Concern for homelessness. Patient states she lives with a friend for the last few months and that the situation is fairly stable. Discharge once okay with social service. S: 11/13 this onset of left lower extremity cellulitis on Saturday. Had fever nausea signs of sepsis yesterday. Possible mosquito bite. Has been visiting mom here in the hospital. No recent travel. No chest pain dyspnea or leg injury. Tetanus shot? /9 feels little better 11/15: better; homeless? 11/16 no distress cellulitis improved. No fever. Occasional nausea initial vomiting. No fever or abdominal pain or diarrhea. Denies any estefani cough O: vss PE No pallor Regular Clear Benign overweight Lt lower ext: min warmth, but erythema noted above ankle below calf. no joint tenderness Result Diagram: 11/16/18 0516 11/16/18 0516 Results 24hrs Laboratory Tests Test 11/16/18 05:16 White Blood Count 8.9 Red Blood Count 4.33 Hemoglobin 9.6 L Hematocrit 34.3 L Mean Corpuscular Volume 79.2 L Mean Corpuscular Hemoglobin 22.2 L Mean Corpuscular Hemoglobin Concent 28.0 L Red Cell Distribution Width 16.9 H Platelet Count 239 Mean Platelet Volume 10.7 H Immature Granulocytes % 1.000 H Neutrophils % 60.0 Lymphocytes % 29.6 Monocytes % 6.8 Eosinophils % 2.0 Basophils % 0.6 Nucleated Red Blood Cells % 0.2 H Immature Granulocytes # 0.090 H Neutrophils # 5.3 Lymphocytes # 2.6 Monocytes # 0.6 Eosinophils # 0.2 Basophils # 0.1 Nucleated Red Blood Cells # 0.0 Sodium Level 139 Potassium Level 4.0 Chloride Level 103 Carbon Dioxide Level 35 H Anion Gap 1 L Blood Urea Nitrogen 15 Creatinine 0.59 Est Glomerular Filtrat Rate mL/min > 60 Glucose Level 84 Calcium Level 8.3 L Total Bilirubin 0.3 Direct Bilirubin 0.00 Indirect Bilirubin 0.3 Aspartate Amino Transf (AST/SGOT) 31 Alanine Aminotransferase (ALT/SGPT) 36 Alkaline Phosphatase 81 Total Protein 7.6 Albumin 3.2 L Globulin 4.40 H Albumin/Globulin Ratio 0.72 Exam/Review of Systems Exam Vitals Vital Signs Date Temp Pulse Resp B/P (MAP) Pulse Ox O2 O2 Flow FiO2 Time Delivery Rate 11/16/18 98.2 77 18 94/54 (67) 93 Room Air 07:25 11/16/18 30 04:55 11/15/18 2.0 19:43 Intake and Output 11/15/18 11/15/18 11/16/18 1515:00 23:00 07:00 IntakeIntake Total 750 ml 790 ml 800 ml BalanceBalance 750 ml 790 ml 800 ml Results Results 24hrs Laboratory Tests Test 11/16/18 05:16 White Blood Count 8.9 Red Blood Count 4.33 Hemoglobin 9.6 L Hematocrit 34.3 L Mean Corpuscular Volume 79.2 L Mean Corpuscular Hemoglobin 22.2 L Mean Corpuscular Hemoglobin Concent 28.0 L Red Cell Distribution Width 16.9 H Platelet Count 239 Mean Platelet Volume 10.7 H Immature Granulocytes % 1.000 H Neutrophils % 60.0 Lymphocytes % 29.6 Monocytes % 6.8 Eosinophils % 2.0 Basophils % 0.6 Nucleated Red Blood Cells % 0.2 H Immature Granulocytes # 0.090 H Neutrophils # 5.3 Lymphocytes # 2.6 Monocytes # 0.6 Eosinophils # 0.2 Basophils # 0.1 Nucleated Red Blood Cells # 0.0 Sodium Level 139 Potassium Level 4.0 Chloride Level 103 Carbon Dioxide Level 35 H Anion Gap 1 L Blood Urea Nitrogen 15 Creatinine 0.59 Est Glomerular Filtrat Rate mL/min > 60 Glucose Level 84 Calcium Level 8.3 L Total Bilirubin 0.3 Direct Bilirubin 0.00 Indirect Bilirubin 0.3 Aspartate Amino Transf (AST/SGOT) 31 Alanine Aminotransferase (ALT/SGPT) 36 Alkaline Phosphatase 81 Total Protein 7.6 Albumin 3.2 L Globulin 4.40 H Albumin/Globulin Ratio 0.72 Medications Medication Current Medications IV Flush (NS 3 ml) 3 ml PER PROTOCOL IV ; Start 11/12/18 at 22:00 Ondansetron HCl (Zofran Inj) 4 mg Q6H PRN IV NAUSEA/VOMITING Last administered on 11/15/18 02:25; Admin Dose 4 MG; Start 11/12/18 at 22:00 Acetaminophen (Tylenol Tab) 650 mg Q6H PRN PO .PAIN 1-3 OR TEMP Last administered on 11/16/18 08:40; Admin Dose 650 MG; Start 11/12/18 at 22:00 Acetaminophen/ Hydrocodone Bitart ([place] (5/325)) 1 tab Q6H PRN PO .MOD PAIN 4- 6 Last administered on 11/15/18 05:33; Admin Dose 1 TAB; Start 11/12/18 at 22:00 Morphine Sulfate (morphine) 2 mg Q4H PRN IV .SEVERE PAIN 7-10; Start 11/12/18 at 22:00 Docusate Sodium (Colace) 100 mg Q12H PRN PO .CONSTIPATION; Start 11/12/18 at 22:00 Bisacodyl (Dulcolax) 5 mg DAILY PRN PO .CONSTIPATION; Start 11/12/18 at 22:00 Heparin Sodium (Porcine) (Heparin (5000 Units/1ml)) 5,000 unit Q8 SC Last administered on 11/16/18 05:35; Admin Dose 5,000 UNIT; Start 11/12/18 at 22:00 Piperacillin Sod/ Tazobactam Sod 100 ml @ 200 mls/hr Q6 IVPB Last administered on 11/16/18 05:32; Admin Dose 200 MLS/HR; Start 11/13/18 at 08:30 Lactobacillus Acidophilus/ Rhamnosus (Culturelle) 1 cap BID PO Last administered on 11/16/18 08:41; Admin Dose 1 CAP; Start 11/14/18 at 09:00 MELECIO DOUGHERTY MD Nov 16, 2018 11:16
--- NOTE | 2018-11-16 20:35 | RADRPT ---
Echocardiogram Report Patient Name: FERNANDEZ ESTRADAPatient ID: [id number] : 1985 (33y 5m)Study Date: 11/16/2018 1:45:18 PM Gender: FAccession #: [id number] Tech: LE Location: [facility] Ref.Physician: MELECIO DOUGHERTY Height(Cm): BSA: Weight(Kg): Quality: Technically Difficult StudyOrder Physician: MELECIO DOUGHERTY Account #: Procedures: Echocardiographic Report: Transthoracic echocardiogram with complete 2D, M-Mode, and doppler examination. Indications: Hypotension. Measurements: 2D/M Mode Doppler Measurement Value Normal Range Measurement Value Normal Range LVIDd 2D 5.4 [ 3.8 - 5.2 ] cm AV Mean Ron 1.1 [ 70.0 - 90.0 ] cm/sec LVIDs 2D 3.7 [ 2.2 - 3.5 ] cm AV Mean PG 6.0 [ 2.0 - 4.0 ] mmHg LVPWd 2D 1.3 [ 0.6 - 0.9 ] cm AV Peak Ron 1.7 [ 100.0 - 170.0 ] cm/sec IVSd 2D 1.3 [ 0.6 - 0.9 ] cm AV Peak PG 12.0 [ 2.0 - 9.0 ] mmHg EDV 2D 144.0 [ 46.0 - 106.0 ] ml AV VTI 33.6 cm ESV 2D 57.4 [ 14.0 - 42.0 ] ml LVOT Peak Ron 1.1 [ 70.0 - 110.0 ] cm/sec EF 2D 60.1 [ 54.0 - 74.0 ] percent LVOT Peak PG 5.0 [ 2.0 - 6.0 ] mmHg LVOT Diam 2.1 [ 2.1 - 2.5 ] cm MV E Peak Ron 1.1 [ 60.0 - 130.0 ] cm/sec MV A Peak Ron 1.2 [ 100.0 - 120.0 ] cm/sec MV E/A 0.9 [ 0.8 - 1.5 ] ratio MV Decel Time 232 [ 104 - 258 ] msec Lat E` Ron 0.1 [ 10.0 - 15.0 ] cm/sec Lateral E/E` 13.0 [ 1.0 - 2.0 ] ratio Med E` Ron 0.1 cm/sec MV E/A 0.9 [ 0.8 - 1.5 ] ratio PV Peak Ron 1.0 [ 40.0 - 80.0 ] cm/sec PV Peak PG 4.0 mmHg Findings: Left Ventricle: Normal left ventricular systolic function. Normal left ventricular cavity size. Normal left ventricular wall thickness. Ejection fraction is visually estimated at 60 %. Tissue Doppler/Mitral Doppler indices are within normal limits. Right Ventricle: Normal right ventricular size. Normal right ventricular systolic function. Left Atrium: The left atrium is normal in size. Right Atrium: The right atrium is normal in size. Mitral Valve: Normal appearance and function of the mitral valve with trace physiologic regurgitation. Aortic Valve: Normal appearance of the aortic valve. No significant aortic stenosis or insufficiency. Tricuspid Valve: Normal appearance of the tricuspid valve. Unable to obtain RVSP due to minimal presence of tricuspid regurgitation. There is trace tricuspid regurgitation. Pulmonic Valve: Pulmonic valve not well visualized. There is trace pulmonic regurgitation. Pericardium: Normal pericardium with no significant pericardial effusion. Aorta: Normal aortic root. IVC: Normal size and normal respiratory collapse consistent with normal right atrial pressure. Conclusions: Technically difficult study with poor visualization. Normal left ventricular systolic function. Normal left ventricular cavity size. Normal left ventricular wall thickness. Ejection fraction is visually estimated at 60 %. Tissue Doppler/Mitral Doppler indices are within normal limits. No significant valvular stenosis or regurgitation seen. Unable to obtain RVSP due to minimal presence of tricuspid regurgitation. Normal size and normal respiratory collapse consistent with normal right atrial pressure. Electronically Signed By: Antwan Galvan 2018-11-16 20:34:50 PDT
[2018-11-17] MEDS: PIPER-TAZO 3.375 GM IV (PMX) 100 ML IVPB SCH ×3 (00:20→11:47)
[2018-11-17 01:33] VITALS: PULSE 68
[2018-11-17 02:00] VITALS: BP 100/50; PULSE 64; RESP 20
[2018-11-17 03:20] VITALS: PULSE 71
[2018-11-17 05:31] VITALS: PULSE 78
[2018-11-17] MEDS: HEPARIN 5,000 UNIT/1 ML VIAL SC SCH ×2 (05:57→13:43)
[2018-11-17 08:17] VITALS: BP 107/56; PULSE 79; RESP 16
[2018-11-17] MEDS: LACTOBACILLUS RHAMNOSUS CAP PO SCH (08:45)
[2018-11-17 14:16] VITALS: BP 105/52; PULSE 65; RESP 16
--- NOTE | 2018-11-18 17:20 | DS ---
Date/Time of Note Date/Time of Note DATE: 11/18/18 TIME: 17:16 Discharge Summary Admission/Discharge Info Admit Date/Time Nov 12, 2018 at 20:01 Discharge Date/Time Nov 17, 2018 at 17:10 Discharge Diagnosis 1. Left lower Ext cellulitis, stable cont keflex. likely strep 2. Bug bite, history of tattoos, taking tetanus booster 3. Morbid obesity, A1c okay, lifestyle changes 4. OHS/CLEMENTINA risk. Consider outpatient testing, lifestyle changes Patient Condition: Good Hospital Course Patient is a 33-year-old female history of morbid obesity who presents with left lower extremity cellulitis which improved with antibiotics. ABG was consistent with OHS with mild hypercapnia and hypoxemia, patient was advised that she will need to attend weight loss and would benefit from an outpatient sleep study. Patient was stable for DC, patient was planning on residing with her friend, patient was saturating well at room air on the day of discharge. The day of discharge patient's vitals, labs and physical exam are stable, patient had no further acute complaints. Home Meds Active Scripts Prochlorperazine* (Prochlorperazine*) 10 Mg Tablet, 10 MG PO Q8 PRN for NAUSEA for 3 Days, TAB Prov:MELECIO DOUGHERTY MD 11/16/18 Lactobacillus Rhamnosus GG (Culturelle) 1 Each Capsule, 1 CAP PO BID for 10 Days, CAP otc Prov:MELECIO DOUGHERTY MD 11/16/18 Acetaminophen* (Tylenol*) 325 Mg Tablet, 650 MG PO Q6H PRN for .PAIN 1-3 OR TEMP for 5 Days, TAB Prov:MELECIO DOUGHERTY MD 11/16/18 Cephalexin* (Keflex*) 500 Mg Capsule, 500 MG PO QID for 7 Days, CAP Prov:NAYLA CARTER MD 11/12/18 Discontinued Reported Medications [No Medications] No Conflict Check 10/29/11 Follow-up Plan Appointment primary 1 week Referral to pulmonary Dr. Garvey in 2 weeks Primary Care Provider Care Physician No Primary Time spent on discharge: > 30 minutes ELLIE ROMO Nov 18, 2018 17:20
== END 2018-11-17 17:10 | disposition home or self-care (01) | DRG 872 ==
LOC: E/R 18:03 → PP2 20:01 → SUATTDRO 20:07
PROVIDERS: ADMIT Family Medicine; ATTEND Internal Medicine
DX: A41.9 Sepsis, unspecified organism (principal); L03.116 Cellulitis of left lower limb; E66.2 Morbid (severe) obesity with alveolar hypoventilation; Z68.43 Body mass index [BMI] 50.0-59.9, adult; R06.89 Other abnormalities of breathing; R09.02 Hypoxemia; S80.862A Insect bite (nonvenomous), left lower leg, initial encounter; W57.XXXA Bitten or stung by nonvenomous insect and other nonvenomous arthropods, initial encounter
CPT/HCPCS: 36415; 36600; 70450; 71045; 80053; 80061; 80202; 81001; 82530; 82533; 82803; 83036; 83605; 83735; 83880; 84145; 84443; 84484; 84703; 85025; 85610; 85730; 87086; 93005; 93306; 94660; 96365; 96375; J0692; J1644; J1885; J1940; J2405; J2543; J3370; J7030